=== PATIENT | female | born 1990 | race Hispanic/Latino ===

== ENCOUNTER 2020-01-03 03:56 | Emergency (ER) | payer OTHER ==
[~2020-01-03] VITALS: Ht 157.5 cm; Wt 104.3 kg
[2020-01-03] MEDS ORDERED: CYCLOBENZAPRINE5 MG PO (04:20)
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
--- OUTSIDE RECORDS SUMMARY | 2020-01-03 04:38 | XMS REPORT | Continuity of Care Document ---
Author Author [facility] Organization [facility] Address 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 Allergies, Adverse Reactions, Alerts Allergy Name Allergy Type Status Severity Reaction(s) Onset Date Inacti ve Date Treating Clinician Comments Source No Known Allergies DA Active U 2019-12-20 00:00:00 [facility] No Known Allergies DA Active U 2019-10-27 00:00:00 [facility] No Known Allergies DA Active U 2019-10-26 00:00:00 [facility] No Known Allergies DA Active U 2017-11-16 00:00:00 [facility] chocolate flavor DA Active [place] 2017-08-07 00:00:00 [facility] Medications This patient has no known medications. Procedures This patient has no known procedures. Results Test Description Test Time Test Comments Results Result Comments Source - DUP VEIN UNI/LTD 2020-01-03 03:43:00 [facility] : 1990 Sex: F Name: MELECIO OSWALD [facility] Edwards : 1990 Age/S: 29 / F [address] [place] [address] Unit #: [id number] Loc: [place] [address] Phys: Eli Chahal Acct: [id number] Dis Date: Status: DEP ER PHONE #: [phone] Exam Date: 01/03/2020 0332 FAX #: [phone] Reason: RUE TINGLING-RECENTLY DX WITH PE-TAKING XARELTO EXAMS: CPT CODE: [id number] DUP VEIN UNI/LTD 90155 Patient Name: MELECIO OSWALD : 1990; Age: 29 years y/o Female MR: [id number] Study: - DUP VEIN UNI/LTD 01/03/2020 1:56 AM Ordering Physician: Eli Chahal Clinical Indication: Right upper extremity tingling DX WITH PE-TAKING XARELTO Comparison: None FINDINGS: Compression duplex ultrasound of the right upper extremity was performed from the subclavicular region through the antecubital fossa. The ipsilateral right internal jugular vein was also evaluated. The visualized right upper extremity veins are patent and compressible without evidence of intraluminal thrombus. Satisfactory spontaneous and augmented flow is demonstrated in the visualized segments. IMPRESSION: Negative right upper extremity venous Doppler without evidence of deep vein thrombosis. A preliminary report was provided by Dr. Mcmillan. SL: TPAINTER-H at 0343 Reported and signed by: Cuate Padilla M.D. CC: Boyd Hopkins M.D.; Eli Chahal Technologist: Kya Macias RDMS(AB)(OB) Trnscb Date/Time: 01/03/2020 (0343) [email or web address] Orig Print D/T: S: 01/03/2020 (0346) Probe: PAGE 1 Signed Report - XR SHOULDER 2 + V RT 2019-12-22 09:50:00 FAX: Sharifa Melgar NP [phone] [place]: St: [facility] FAX: Balwinder Casper I [phone] FAX: Boyd Salamanca MD [phone] Name: OSWALDMELECIOEdgard QUIÑONEZ [facility] : 1990 Age/S: 29/F [address] [place] [address] Unit #: [id number] Loc: [address] [address] Phys: Sharifa Melgar NP Acct: [id number] Dis Date: Status: ADM IN PHONE #: [phone] Exam Date: 12/22/2019942 FAX #: [phone] Reason: RT SHOULDER PAIN EXAMS: CPT CODE: [id number] XR SHOULDER 2 + [place] [address] RIGHT SHOULDER 3 VIEWS 12/22/2019 COMPARISON: December 18, 2019 CLINICAL HISTORY: RT SHOULDER PAIN FINDINGS: No acute fracture or dislocation is noted. No lytic or blastic lesion is seen. No significant joint space narrowing noted. IMPRESSION: No acute osseous abnormality. at 0950 Reported and signed by: Shad Jane M.D. CC: Sharifa Melgar NP; Balwinder Artis MD; Boyd Hopkins M.D. Technologist: Juliana Hodge, RT(R); eTrese Palacios RT(R) Trnlard Date/Time/By: 12/22/2019 (2931) : By: [email or web address] Orig Print D/T: S: 12/22/2019 (2353) PAGE 1 Signed Report - DUP VEIN PATRICK 2019-12-21 10:54:00 Name: MELECIO YORK [facility] : 1990 Age/S: 29 / F [address] [place] [address] Unit #: [id number] Loc: [place] [address] Phys: Sharifa Melgar NP Acct: [id number] Dis Date: Status: ADM IN PHONE #: [phone] Exam Date: 12/21/2019 1048 FAX #: [phone] Reason: R/O DVT EXAMS: CPT CODE: [id number] DUP VEIN PATRICK [address] EXAM: US BILATERAL LOWER EXTREMITY VENOUS DOPPLER : 1990; Age: 29 years y/o Female INDICATION: Shortness of breath, chest pain, R/O DVT COMPARISON: None. TECHNIQUE: Multiplanar grayscale, color Doppler and spectral Doppler ultrasound of the bilateral lower extremity veins. FINDINGS: Right lower extremity: The common femoral vein, femoral vein, popliteal vein and visualized posterior tibial/calf veins are patent. There is no echogenic debris to suggest deep venous thrombosis. Left lower extremity: The common femoral vein, superficial femoral vein, popliteal vein and visualized posterior tibial/calf veins are patent. There is no echogenic debris to suggest deep venous thrombosis. IMPRESSION: No Deep Venous Thrombosis of the lower extremities. SL: [id number] at 1054 Reported and signed by: Jorge Gaines D.O. CC: Sharifa Melgar NP; Balwinder Artis MD; Boyd Hopkins M.D. Technologist: Pamela Joe RDMS(Edgard)(BR) Trnscb Date/Time: 12/21/2019 (105) [email or web address] Orig Print D/T: S: 12/21/2019 (1058) Probe: PAGE 1 Signed Report T4 FREE 2019-12-20 20:14:00 Test Item T4 FREE (test code = T4F) 1.1 ng/dL 0.77-1.61 N COMMENTS: REPEATTHYROID STIMULATING [id number] 20:14:00* Test Item Value Reference Range Interpretation Comments THYROID STIMULATING HORMONE (test code = TSH) 4.36 0.42-5.4 7 N Results in jonathan- International Units/mL COMMENTS: [id number] 09:34:00* Test Item Value Reference Range Interpretation Comments TROPONIN-I (test code = TROPI) < 0.006 ng/mL 0.000-0.045 N Negative: <= 0.045 Positive: >= 0.046 Correlation with serial results, other cardiac markers andclinical findings is necessary to determine the clinicalsignificance of this result. Results using different methodologies should not be comparedto one another as quantitative results may vary by method. PROTHROMBIN [id number] 08:31:00* Test Item Value Reference Range Interpretation Comments PROTHROMBIN TIME PATIENT (test code = PTP) 11.3 SECONDS 9.3-12.9 N INTERNATIONAL NORMAL RATIO (test code = INR) 1.0 0.8-1.2 N TARGET INR BY INDICATION Indication INR1. Prophylaxis of venous thrombosis 2.0 - 3.0 (orthopedic surgery), Prophylaxis of venous thrombosis (other than high-risk surgery), Treatment of Deep Vein Thrombosis/Pulmonary Embolism, Prevention of systemic embolism - Tissue heart valves, Acute Myocardial Infarction (to prevent systemic embolism), Valvular heart disease, Atrial Fibrillation, Bileaflet mechanical valve in aortic position.2. Mechanical prosthetic valves (high risk), 2.5 - 3.5 Presence of Lupus Anticoagulant or Antiphospholipid Antibodies, Prevention of systemic embolism - Acute Myocardial Infarction (to prevent recurrent infarct). THROMBOPLASTIN TIME [id number] 08:31:00* Test Item Value Reference Range Interpretation Comments THROMBOPLASTIN TIME PARTIAL (test code = PTT) 34.3 Seconds 25.0-39. 5 N Therapeutic Range: 50.4 - 88.3 Seconds Effective 06/30/2018 [id number] 07:29:00* Test Item Value Reference Range Interpretation Comments TROPONIN-I (test code = TROPI) < 0.006 ng/mL 0.000-0.045 N Negative: <= 0.045 Positive: >= 0.046 Correlation with serial results, other cardiac markers andclinical findings is necessary to determine the clinicalsignificance of this result. Results using different methodologies should not be comparedto one another as quantitative results may vary by method. UR HCG [id number] 06:56:00* Test Item Value Reference Range Interpretation Comments UR HCG QUAL (test code = HCGQLU) NEGATIVE NEGATIVE B-TYPE NATRIURETIC [id number] 05:46:00* Test Item Value Reference Range Interpretation Comments B-TYPE NATRIURETIC PEPTIDE (test code = BNP) 4.0 PG/ML 0-100 N BASIC METABOLIC [id number] 05:41:00* Test Item Value Reference Range Interpretation Comments SODIUM (test code = NA) 135 mEq/L 134-147 N POTASSIUM (test code = K) 4.7 mEq/L 3.4-5.0 N CHLORIDE (test code = CL) 107 mEq/L 100-108 N CARBON DIOXIDE (test code = CO2) 26 mEq/L 21-33 N ANION GAP (test code = GAP) 7 0-20 N GLUCOSE (test code = GLU) 90 mg/dL 70-110 N BLOOD UREA NITROGEN (test code = BUN) 10 mg/dL 7-18 N GLOMERULAR FILTRATION RATE (test code = GFR) 98.9 110-120 L Units of measure = ml/min/1.73 m2 CREATININE (test code = CREAT) 0.7 mg/dL 0.6-1.3 N CALCIUM (test code = CA) 8.5 mg/dL 8.0-10.5 N [id number] 05:41:00* Test Item Value Reference Range Interpretation Comments TROPONIN-I (test code = TROPI) < 0.006 ng/mL 0.000-0.045 N Negative: <= 0.045 Positive: >= 0.046 Correlation with serial results, other cardiac markers andclinical findings is necessary to determine the clinicalsignificance of this result. Results using different methodologies should not be comparedto one another as quantitative results may vary by method. CBC W/AUTO [id number] 05:22:00* Test Item Value Reference Range Interpretation Comments WHITE BLOOD CELL (test code = WBC) 10.22 x10 3/uL 4.5-11.0 N RED BLOOD CELL (test code = RBC) 4.23 x10 6/uL 3.54-5.02 N HEMOGLOBIN (test code = HGB) 10.9 g/dL 11.0-15.0 L HEMATOCRIT (test code = HCT) 35.8 % 33.0-45.0 N MEAN CELL VOLUME (test code = MCV) 84.6 fL 81.0-99.0 N MEAN CELL HGB (test code = MCH) 25.8 pg 27.0-33.0 L MEAN CELL HGB CONCETRATION (test code = MCHC) 30.4 g/dL 33.0-37. 0 L RED CELL DISTRIBUTION WIDTH CV (test code = RDW) 14.8 % 11.5- 14.5 H RED CELL DISTRIBUTION WIDTH SD (test code = RDW-SD) 45.6 fL 37 .0-54.0 N PLATELET COUNT (test code = PLT) 301 x10 3/uL 150-400 N MEAN PLATELET VOLUME (test code = MPV) 11.0 fL 7.0-9.0 H NEUTROPHIL % (test code = NT%) 52.8 % 56.0-77.0 L IMMATURE GRANULOCYTE % (test code = IG%) 0.3 % 0.0-2.0 N LYMPHOCYTE % (test code = LY%) 37.1 % 14.0-32.0 H MONOCYTE % (test code = MO%) 5.8 % 4.8-9.0 N EOSINOPHIL % (test code = EO%) 3.6 % 0.3-3.7 N BASOPHIL % (test code = BA%) 0.4 % 0.0-2.0 N NUCLEATED RBC % (test code = NRBC%) 0.0 % 0-0 N NEUTROPHIL # (test code = NT#) 5.40 x10 3/uL 2.0-7.6 N IMMATURE GRANULOCYTE # (test code = IG#) 0.03 x10 3/uL 0.00-0.03 N LYMPHOCYTE # (test code = LY#) 3.79 x10 3/uL 1.0-3.8 N MONOCYTE # (test code = MO#) 0.59 x10 3/uL 0.1-0.8 N EOSINOPHIL # (test code = EO#) 0.37 x10 3/uL 0.0-0.2 H BASOPHIL # (test code = BA#) 0.04 x10 3/uL 0.0-0.2 N NUCLEATED RBC # (test code = NRBC#) 0.00 x10 3/uL 0.0-0.1 N MANUAL DIFF REQUIRED (test code = MDIFF) NO - XR CHEST 1 [id number] 05:04:00 FAX: Boyd Salamanca MD [phone] [place]: St: REG FAX: Ashvin Stubbs MD Name: MELECIO OSWALD [facility] : 1990 Age/S: 29/F [address] [place] [address] Unit #: [id number] Loc: [place] [address] Phys: Ashvin Stubbs MD Acct: [id number] Dis Date: Status: REG ER PHONE #: [phone] Exam Date: 12/20/2019 0455 FAX #: [phone] Reason: R chest pain EXAMS: CPT CODE: [id number] XR CHEST 1 V 82745 Study: - XR CHEST 1 V 12/20/2019 4:40 AM Patient Name: MELECIO OSWALD MR: [id number] : 1990; Age: 29 years y/o Female Ordering Physician: Ashvin Stubbs MD Clinical Indication: Right chest pain. Comparison: 12/20/2019 at 0131 hours FINDINGS LUNGS: Slightly decreasing pulmonary inflation associated with hazy right upper lobe opacity likely summation artifact related to vessels and overlapping osseous structures. No definite pleural effusion or pneumothorax. Slightly elevated right hemidiaphragm HEART AND MEDIASTINUM: Normal size heart. LINES: None. OSSEOUS STRUCTURES: No fracture, dislocation, or suspicious focal osseous lesion. OTHER: None. IMPRESSION: Slightly decreasing pulmonary inflation associated with hazy right upper lobe opacity likely summation artifact related to vessels and overlapping osseous structures. An apical lordotic image with better inflation with be confirmatory if clinically indicated. SL: TPAINTER-H at 0504 Reported and signed by: Cuate Padilla M.D. PAGE 1 Signed Report (CONTINUED) FAX: Boyd Salamanca MD [phone] [place]: St: REG FAX: Ashvin Stubbs MD Name: MELECIO OSWALD [facility] : 1990 Age/S: 29/F [address] [facility] [address] Unit #: [id number] Loc: [place] [address] Phys: Ashvin Stubbs MD Acct: [id number] Dis Date: Status: REG ER PHONE #: [phone] Exam Date: 12/20/2019 0455 FAX #: [phone] Reason: R chest pain EXAMS: C PT CODE: [id number] XR CHEST 1 V 75054 <Continued> CC: Boyd Hopkins M.D.; Ashvin Stubbs MD Technologist: Yi Small, RT(R) Trnscrd Date/Time/By: 12/20/2019 (0504) : By: [email or web address] Orig Print D/T: S: 12/20/2019 (050) PAGE 2 Signed Report BASIC METABOLIC [id number] 02:24:00* Test Item Value Reference Range Interpretation Comments SODIUM (test code = NA) 141 mmol/L 135-148 N POTASSIUM (test code = K) 3.7 mmol/L 3.5-5.1 N CHLORIDE (test code = CL) 102 mmol/L 101-109 N CARBON DIOXIDE (test code = CO2) 28.2 mmol/L 21-32 N ANION GAP (test code = GAP) 15 mmol/L 10-20 N GLUCOSE (test code = GLU) 113 mg/dL 74-106 H BLOOD UREA NITROGEN (test code = BUN) 9 mg/dL 3-21 N GLOMERULAR FILTRATION RATE (test code = GFR) > 60 mL/min >=60 Estimated GFR by using Modified MDRD formula.Chronic kidney disease is defined as either kidney damageor GFR <60 mL/min/1.73 m2 for >3 months. CREATININE (test code = CREAT) 0.59 mg/dL 0.55-1.3 N BUN/CREATININE RATIO (test code = BUN/CREA) 15.3 10-20 N CALCIUM (test code = CA) 8.8 mg/dL 8.4-10.2 N HEPATIC FUNCTION [id number] 02:24:00* Test Item Value Reference Range Interpretation Comments TOTAL PROTEIN (test code = PROT) 7.4 g/dL 6.5-8.4 N ALBUMIN (test code = ALB) 3.3 g/dL 3.4-4.8 L GLOBULIN (test code = GLOB) 4.1 G/DL 1-10 N ALBUMIN/GLOBULIN RATIO (test code = A/G) 0.8 RATIO 0.75-1.50 N BILIRUBIN TOTAL (test code = BILT) 0.40 mg/dL 0.0-1.0 N BILIRUBIN DIRECT (test code = BILD) 0.10 mg/dL 0.0-0.30 N SGOT/AST (test code = AST) 37 U/L 6-32 H SGPT/ALT (test code = ALT) 80 U/L 12-78 H N ote: Change in REFERENCE RANGE due to new reagent method. ALKALINE PHOSPHATASE TOTAL (test code = ALKP) 99 U/L 38-126 N HCG SERUM [id number] 02:24:00* Test Item Value Reference Range Interpretation Comments HCG SERUM QUAL (test code = HCGQL) NEGATIVE NEGATIVE This HCGQL test is NOT applicable for MALE patients.Check with nurse about probable order error.If Tumor Marker Test needed, nurse should order test "HCGTU"(Test #550.82822) [id number] 02:24:00* Test Item Value Reference Range Interpretation Comments TROPONIN-I (test code = TROPI) <0.015 ng/mL 0.00-0.056 N PROTHROMBIN [id number] 02:10:00* Test Item Value Reference Range Interpretation Comments PROTHROMBIN TIME PATIENT (test code = PTP) 9.6 seconds 9.0-13.0 N INTERNATIONAL NORMAL RATIO (test code = INR) 1.0 0.8-1.2 N The therapeutic range for oral anticoagulant therapy formost indications is an international normalized ratio (INR)of between 2.0 and 3.0. The recommended therapeutic INRrange for various clinical situations is listed below: Clinical Situation INR range Pulmonary e mbolism treatment (2.0-3.0)Venous thrombosis treatmentVenous thrombosis prophylaxis (high risk surgery)Prevention of systemic embolism from: Acute myocardial infarction Valvular heart disease Atrial fibrillation Mechanical prosthetic heart valves (2.5-3.5) IS PATIENT ON ANTICOAGULANTS? NTHROMBOPLASTIN TIME [id number] 02:10:00* Test Item Value Reference Range Interpretation Comments THROMBOPLASTIN TIME PARTIAL (test code = PTT) 23.7 seconds 25.5-34. 3 L Therapeutic Range for patients on Heparin Therapy is 2 to2.5 times their baseline PTT level. IS PATIENT ON ANTICOAGULANTS? [id number] 02:10:00* Test Item Value Reference Range Interpretation Comments D-DIMER (test code = DDIMER) 791 ng/ml < 600 HH Results called to [id number] by [email or web address] 12/20/19 0210Critical results verified and read back by Nurse? Y IS PATIENT ON ANTICOAGULANTS? NBASIC METABOLIC [id number] 02:05:00* Test Item Value Reference Range Interpretation Comments SODIUM (test code = NA) 141 mmol/L 135-148 N POTASSIUM (test code = K) 3.7 mmol/L 3.5-5.1 N CHLORIDE (test code = CL) 102 mmol/L 101-109 N CARBON DIOXIDE (test code = CO2) 28.2 mmol/L 21-32 N ANION GAP (test code = GAP) 15 mmol/L 10-20 N GLUCOSE (test code = GLU) 113 mg/dL 74-106 H BLOOD UREA NITROGEN (test code = BUN) 9 mg/dL 3-21 N GLOMERULAR FILTRATION RATE (test code = GFR) > 60 mL/min >=60 Estimated GFR by using Modified MDRD formula.Chronic kidney disease is defined as either kidney damageor GFR <60 mL/min/1.73 m2 for >3 months. CREATININE (test code = CREAT) 0.59 mg/dL 0.55-1.3 N BUN/CREATININE RATIO (test code = BUN/CREA) 15.3 10-20 N CALCIUM (test code = CA) 8.8 mg/dL 8.4-10.2 N HEPATIC FUNCTION [id number] 02:05:00* Test Item Value Reference Range Interpretation Comments TOTAL PROTEIN (test code = PROT) gram/dL 6.4-8.2 ALBUMIN (test code = ALB) g/dL 3.4-5.0 GLOBULIN (test code = GLOB) g/dL 2.7-4.2 ALBUMIN/GLOBULIN RATIO (test code = A/G) 0.75-1.50 BILIRUBIN TOTAL (test code = BILT) mg/dL 0.2-1.2 BILIRUBIN DIRECT (test code = BILD) mg/dL 0.0-0.20 SGOT/AST (test code = AST) IUnit/L 15-37 SGPT/ALT (test code = ALT) U/L 10-69 ALKALINE PHOSPHATASE TOTAL (test code = ALKP) IUnit/L 45-117 HCG SERUM [id number] 02:05:00* Test Item Value Reference Range Interpretation Comments HCG SERUM QUAL (test code = HCGQL) NEGATIVE NEGATIVE This HCGQL test is NOT applicable for MALE patients.Check with nurse about probable order error.If Tumor Marker Test needed, nurse should order test "HCGTU"(Test #550.24376) [id number] 02:05:00* Test Item Value Reference Range Interpretation Comments TROPONIN-I (test code = TROPI) ng/mL 0-0.045 PROTHROMBIN [id number] 02:03:00* Test Item Value Reference Range Interpretation Comments PROTHROMBIN TIME PATIENT (test code = PTP) 9.6 seconds 9.0-13.0 N INTERNATIONAL NORMAL RATIO (test code = INR) 1.0 0.8-1.2 N The therapeutic range for oral anticoagulant therapy formost indications is an international normalized ratio (INR)of between 2.0 and 3.0. The recommended therapeutic INRrange for various clinical situations is listed below: Clinical Situation INR range Pulmonary e mbolism treatment (2.0-3.0)Venous thrombosis treatmentVenous thrombosis prophylaxis (high risk surgery)Prevention of systemic embolism from: Acute myocardial infarction Valvular heart disease Atrial fibrillation Mechanical prosthetic heart valves (2.5-3.5) IS PATIENT ON ANTICOAGULANTS? NTHROMBOPLASTIN TIME [id number] 02:03:00* Test Item Value Reference Range Interpretation Comments THROMBOPLASTIN TIME PARTIAL (test code = PTT) 23.7 seconds 25.5-34. 3 L Therapeutic Range for patients on Heparin Therapy is 2 to2.5 times their baseline PTT level. IS PATIENT ON ANTICOAGULANTS? [id number] 02:03:00* Test Item Value Reference Range Interpretation Comments D-DIMER (test code = DDIMER) ng/ml < 600 IS PATIENT ON ANTICOAGULANTS? NBASIC METABOLIC [id number] 02:03:00* Test Item Value Reference Range Interpretation Comments SODIUM (test code = NA) 141 mmol/L 135-148 N POTASSIUM (test code = K) 3.7 mmol/L 3.5-5.1 N CHLORIDE (test code = CL) 102 mmol/L 101-109 N CARBON DIOXIDE (test code = CO2) 28.2 mmol/L 21-32 N ANION GAP (test code = GAP) 15 mmol/L 10-20 N GLUCOSE (test code = GLU) 113 mg/dL 74-106 H BLOOD UREA NITROGEN (test code = BUN) 9 mg/dL 3-21 N GLOMERULAR FILTRATION RATE (test code = GFR) > 60 mL/min >=60 Estimated GFR by using Modified MDRD formula.Chronic kidney disease is defined as either kidney damageor GFR <60 mL/min/1.73 m2 for >3 months. CREATININE (test code = CREAT) 0.59 mg/dL 0.55-1.3 N BUN/CREATININE RATIO (test code = BUN/CREA) 15.3 10-20 N CALCIUM (test code = CA) 8.8 mg/dL 8.4-10.2 N HEPATIC FUNCTION [id number] 02:03:00* Test Item Value Reference Range Interpretation Comments TOTAL PROTEIN (test code = PROT) gram/dL 6.4-8.2 ALBUMIN (test code = ALB) g/dL 3.4-5.0 GLOBULIN (test code = GLOB) g/dL 2.7-4.2 ALBUMIN/GLOBULIN RATIO (test code = A/G) 0.75-1.50 BILIRUBIN TOTAL (test code = BILT) mg/dL 0.2-1.2 BILIRUBIN DIRECT (test code = BILD) mg/dL 0.0-0.20 SGOT/AST (test code = AST) IUnit/L 15-37 SGPT/ALT (test code = ALT) U/L 10-69 ALKALINE PHOSPHATASE TOTAL (test code = ALKP) IUnit/L 45-117 HCG SERUM [id number] 02:03:00* Test Item Value Reference Range Interpretation Comments HCG SERUM QUAL (test code = HCGQL) NEGATIVE [id number] 02:03:00* Test Item Value Reference Range Interpretation Comments TROPONIN-I (test code = TROPI) ng/mL 0-0.045 CBC W/O [id number] 01:49:00* Test Item Value Reference Range Interpretation Comments WHITE BLOOD CELL (test code = WBC) 8.7 K/mm3 4.5-12.5 N RED BLOOD CELL (test code = RBC) 4.32 mill/mm3 3.7-5.2 N HEMOGLOBIN (test code = HGB) 11.2 gram/dL 11.5-15.5 L HEMATOCRIT (test code = HCT) 35.6 % 36.0-46.0 L MEAN CELL VOLUME (test code = MCV) 82.4 fL 80-98 N MEAN CELL HGB (test code = MCH) 25.9 picogram 27.0-33.0 L MEAN CELL HGB CONCETRATION (test code = MCHC) 31.5 gram/dL 33.0-36. 0 L RED CELL DISTRIBUTION WIDTH (test code = RDW) 14.7 % 11.6-16. 2 N RED CELL DISTRIBUTION WIDTH SD (test code = RDW-SD) 44.2 fL 37 .0-51.0 N PLATELET COUNT (test code = PLT) 255 K/mm3 150-450 N MEAN PLATELET VOLUME (test code = MPV) 10.8 fL 6.7-11.0 N - XR CHEST 1 [id number] 01:43:00 Name: MELECIO OSWALD [facility] : 1990 Age/S:29 /F [address] [facility] Unit#:[id number] Loc: [place] [address] Phys: Dianna Villeda MD Dis Date: PHONE #: [phone] Status: PRE ER FAX #: [phone] Exam Date: 12/20/2019 Reason: CHEST PAIN EXAMS: CPT CODE: [id number] XR CHEST 1 V 49616 AFTER HOURS SERVICE ON: 12/20/2019 1:43 AM AP Portable Chest Location Code M12 HISTORY: CHEST PAIN FINDINGS: There are no infiltrates. There are no pleural effusions. There is no pneumothorax. Cardiac silhouette and mediastinum appear within normal limits. IMPRESSION: No active pulmonary findings. at 0143 Reported and signed by: Holly Pemberton M.D. CC: Boyd Hopkins MD Technologist: MARIAM PETERSON CT Trnscrpt Data: 12/20/2019 (0143) t.[email or web address] Orig Print D/T: S: 12/20/2019 (0146) PAGE 1 Signed Report - CTA CHEST FOR [id number] 04:42:00 Name: MELECIO OSWALD [facility] : 1990 Age/S: 29 / F [address] [place] [address] Blvd Unit #: [id number] Loc: [place] [address] Phys: Parag Herrera MD Acct: [id number] Di s Date: Status: REG ER PHONE #: Exam Date: 12/18/2019427 FAX #: [phone] Reason: CHEST PAIN EXAMS: CPT CODE: [id number] [place] [address] STUDY: - CTA CHEST FOR PE 12/18/2019 2:49 AM Ordering Physician: Parag Herrera MD Patient Name: MELECIO OSWALD MR: [id number] : 1990; Age: 29 years y/o Female Clinical Indication: Chest pain. Right chetan ulder pain. Comparison: 09/08/2018 TECHNIQUE: Sequential trans-axial images were obtained with a multi-detector helical CT after iodinated contrast administration. Coronal, sagittal, and 3-D MIP reconstructions were performed. CT imaging performed at this [facility] ation utilizes radiation dose optimization techniques which include one or more of the following: -Automated exposure control -Adjustm ent of the mA and/or kV according to patient size -Use of iterative recons truction technique IV CONTRAST: [id number] Radiati on Dose DLP: 415.47 mGy-cm FINDINGS: The e xamination is mildly limited by scatter artifact related to patient body h abitus. VASCULAR EVALUATION THORACIC AORTA: Normal c aliber without aneurysm or dissection. PULMONARY ARTERIES: No evid ence of a central pulmonary embolus is appreciated. However, several smal l indeterminate filling defects are seen on multiple contiguous images wit hin segmental branches in both lung bases best demonstrated on series 2 im age 53 and 54 the right lower lobe and a series 2 images 61-68 in the left lower lobe. NONVASCULAR EVALUATION LUNGS: W ell inflated lungs associated with a mildly elevated right PAGE 1 Signed Report (CONTINUED) Name: MELECIO [facility]ALD [facility] [place] : 1990 Age/S: 29 / F [address] [facility] Unit #: [id number] Loc: [place] [address] Phys: Parag Herrera MD Acct: [id number] Dis Date: Status: REG ER PHONE #: [phone] Exam D ate: 12/18/2019427 FAX #: [phone] Reason: CHEST PAIN EXAMS: CPT CODE: [id number] [place] [address] <Continued> hemidiaphragm and minimal bilateral basilar subsegmental atelectasis. No consolidation, pleural effusion, or pneumothorax. AIRWAY: Clear central tracheobronchial tree. HEART: Heart size at the upper limits of normal. MEDIASTINUM AND KARRIE: No hilar or mediastinal lymphadenopathy. Heterogeneous enlarged thyroid. VISUALIZED UPPER ABDOMEN: Incompletely visualized hepatic steatosis. SOFT TISSUES: No suspicious soft tissue lesion or abnormality. OSSEOUS STRUCTURES: No fracture, dislocation, or suspicious focal osseous lesion. IMPRESSION: Mildly limited examination secondary to artifact from patient body habitus. No evidence of central pulmonary embolus is appreciated. However, subtle indeterminate filling defects are seen within segmental branches in both lung bases worrisome for tiny peripheral emboli. Hepatic steatosis. Mildly enlarged and heterogeneous thyroid. Critical findings were communicated to Parag Herrera MD on 12/18/2019 4:40 AM. SL: TPAINTER-H at 0442 Reported and signed by: Cuate Padilla M.D. PAGE 2 Signed Report (CONTINUED) Name: MELECIO OSWALD [facility] [place] : 1990 Age/S: 29 / F [address] [facility] Unit #: [id number] Loc: [place] [address] Phys: Parag Herrera MD Acct: [id number] Dis Date: Status: REG ER PHONE #: [phone] Exam Date: 12/18/2019427 FAX #: [phone] Reason: CHEST PAIN EXAMS: CPT CODE: [id number] [place] [address] <Continued> CC: Boyd Hopkins M.D.; Parag Herrera MD Technologist:Mariam Todd, RT(R)(CT) CTDI: DLP: Trnscb Date/Time: 12/18/2019 (441) [email or web address] Orig Print D/T: S: 12/18/2019 (0443) PAGE 3 Signed Report DRUGS OF ABUSE SCREEN [id number] 04:01:00* Test Item Value Reference Range Interpretation Comments URN COCAINE (test code = COCAURN) NEGATIVE NEGATIVE URN CANNABINOIDS (test code = CANNABURN) POSITIVE NEGATIVE A URN AMPHETAMINE (test code = AMPHETURN) NEGATIVE NEGATIVE URN BARBITURATE (test code = BARBITURN) NEGATIVE NEGATIVE URN BENZODIAZEPINE (test code = BENZOURN) NEGATIVE NEGATIVE Cut-off value:200 ng/mL URN OPIATES (test code = OPIATURN) NEGATIVE NEGATIVE Cut-off value:2000 ng/mL URN PHENCYCLIDINE (PCP) (test code = PHENCURN) NEGATIVE NEGATIV E Cutoffs:Barbiturates 200 ng/mLBenzodiazepines 200 ng/mLTHC Cannabinoids 50 ng/mLOpiates(Morphine) 2000 ng/mLAmphetamine 1000 ng/mLCocaine 300 ng/mLPCP phencyclidine 25 ng/mL Unconfirmed screening results shouldnot be used for non-medical purposes. UR HCG [id number] 03:44:00* Test Item Value Reference Range Interpretation Comments UR HCG QUAL (test code = HCGQLU) NEGATIVE NEGATIVE - XR SHOULDER 2 + V [id number] 02:43:00 FAX: Boyd Salamanca MD [phone] [place]: St: [facility] FAX: Parag Mares MD [phone] Name: OSWALDMELECIO WORTHINGTON OLAMIDE [facility] [place] : 1990 Age/S: 29/F [address] [place] [address] Unit #: [id number] Loc: [place] [address] Phys: Parag Herrera MD Acct: [id number] Dis Date: Status: REG ER PHONE #: [phone] Exam Date: 12/18/2019 023 FAX #: [phone] Reason: ATRAUMATIC PAIN EXAMS: CPT CODE: [id number] XR SHOULDER 2 + V RT [id number] Study: - XR SHOULDER 2 + V RT 12/18/2019 1:53 AM P atient Name: MELECIO OSWALD MR: [id number] : 1990; Age: 29 years y/o Female Ordering Physician: Parag Herrera MD Clinical Indication: Nontraumatic right shoulder pain. Compariso n: None RIGHT SHOULDER, 2 views: IMPRESSION: No acute fracture, dislocation, or suspicious focal osseous lesion. Mildly prominent soft tissues likely related to body habitus. SL: TPAINTER-H Elect ronically Signed by Faustino Padilla on 12/18/19 20 at 0243 Reported and signed by: Cuate yoon M.D. CC: Boyd Hopkins M.D.; Parag Herrera MD Technologist: Socorro Jimenez, RT(R); Trudi Guzman RT(R) Tr [facility] Date/Time/By: 12/18/2019 (0243) : By: [email or web address] Orig Print D/T: S: 12/18/2019 (0246) PAGE 1 Pooja d Report - XR CHEST 1 [id number] 02:42:00 FAX: Boyd Salamanca MD [phone] [place]: St: REG FAX: Parag Mares MD [phone] Name: MELECIO OWSALD [facility] [place] : 1990 Age/S: 29/F [address] [place], [place] [address] Unit #: [id number] Loc: [place] [address] Phys: Parag Herrera MD Acct: [id number] Dis Date: Status: REG ER PHONE #: [phone] Exam Date: 12/18/2019 0231 FAX #: [phone] Reason: Chest Pain EXAMS: CPT CODE: [id number] XR CHEST 1 V 35756 Study: - XR CHEST 1 V 12/18/2019 1:52 AM Patient Name: MELECIO OSWALD MR: [id number] : 1990; Age: 29 years y/o Female Ordering Physician: Parag Herrera MD Clinical Indication: Chest Pain Comparison: None FINDINGS LUNGS: The hypoinflated lungs are clear of consolidation, pleural effusion, and pneumothorax. HEART AND MEDIASTINUM: Normal size heart accentuated by mild hypoinflation. LINES: None. OSSEOUS STRUCTURES: No fracture, dislocation, or suspicious focal osseous lesion. OTHER: None. IMPRESSION: Mildly hypoinflated, but clear lungs. SL: TPAINTER-H Electron ically Signed by Faustino Padilla on 12/18/2019 at 0242 Reported and signed by: Cuate lama M.D. PAGE 1 Signed Report (CONTINUED) FAX: Boyd Salamanca MD [phone] [place]: St: REG FAX: Parag Mares MD [phone] Name: MELECIO OSWALD [facility] [place] : 1990 Age/S: 29/F [address] [place], [place] [address] Unit #: [id number] Loc: [place] [address] Phys: Parag Herrera MD Acct: [id number] Dis Date: Status: REG ER PHONE #: [phone] Exam Date: 12/18/2019 0231 FAX #: [phone] Reason: Chest Pain EXAMS: CPT CODE: [id number] XR CHEST 1 V 06204 <Continued> CC: Boyd Hopkins M.D.; Parag Herrera MD Technologist: Socorro Jimenez, RT(R); Trudi Guzman, RT(R) Trnscrd Date/Time/By: 12/18/2019 (0242) : By: [email or web address] Orig Print D/T: S: 12/18/2019 (0245) PAGE 2 Signed Report BASIC METABOLIC [id number] 02:23:00* Test Item Value Reference Range Interpretation Comments SODIUM (test code = NA) 138 mEq/L 134-147 N POTASSIUM (test code = K) 3.7 mEq/L 3.4-5.0 N CHLORIDE (test code = CL) 105 mEq/L 100-108 N CARBON DIOXIDE (test code = CO2) 25 mEq/L 21-33 N ANION GAP (test code = GAP) 12 0-20 N GLUCOSE (test code = GLU) 117 mg/dL 70-110 H BLOOD UREA NITROGEN (test code = BUN) 14 mg/dL 7-18 N GLOMERULAR FILTRATION RATE (test code = GFR) 98.9 110-120 L Units of measure = ml/min/1.73 m2 CREATININE (test code = CREAT) 0.7 mg/dL 0.6-1.3 N CALCIUM (test code = CA) 9.0 mg/dL 8.0-10.5 N HEPATIC FUNCTION [id number] 02:23:00* Test Item Value Reference Range Interpretation Comments TOTAL PROTEIN (test code = PROT) 7.6 g/dL 6.4-8.2 N ALBUMIN (test code = ALB) 3.90 g/dL 3.4-5.0 N BILIRUBIN TOTAL (test code = BILT) 0.50 mg/dL 0.0-1.0 N BILIRUBIN DIRECT (test code = BILD) 0.10 MG/DL 0.0-0.30 N BILIRUBIN INDIRECT (test code = BILIND) 0.40 MG/DL SGOT/AST (test code = AST) 47 IUnit/L 15-37 H SGPT/ALT (test code = ALT) 74 IUnit/L 30-65 H ALKALINE PHOSPHATASE TOTAL (test code = ALKP) 115 IUnit/L 20-125 N [id number] 02:23:00* Test Item Value Reference Range Interpretation Comments LIPASE (test code = LIP) 33 U/L 13-57 N [id number] 02:23:00* Test Item Value Reference Range Interpretation Comments MAGNESIUM (test code = MAG) 1.94 mg/dL 1.8-2.4 N PROTHROMBIN [id number] 02:17:00* Test Item Value Reference Range Interpretation Comments PROTHROMBIN TIME PATIENT (test code = PTP) 10.7 SECONDS 9.3-12.9 N INTERNATIONAL NORMAL RATIO (test code = INR) 1.0 0.8-1.2 N TARGET INR BY INDICATION Indication INR1. Prophylaxis of venous thrombosis 2.0 - 3.0 (orthopedic surgery), Prophylaxis of venous thrombosis (other than high-risk surgery), Treatment of Deep Vein Thrombosis/Pulmonary Embolism, Prevention of systemic embolism - Tissue heart valves, Acute Myocardial Infarction (to prevent systemic embolism), Valvular heart disease, Atrial Fibrillation, Bileaflet mechanical valve in aortic position.2. Mechanical prosthetic valves (high risk), 2.5 - 3.5 Presence of Lupus Anticoagulant or Antiphospholipid Antibodies, Prevention of systemic embolism - Acute Myocardial Infarction (to prevent recurrent infarct). THROMBOPLASTIN TIME [id number] 02:17:00* Test Item Value Reference Range Interpretation Comments THROMBOPLASTIN TIME PARTIAL (test code = PTT) 25.3 Seconds 25.0-39. 5 N Therapeutic Range: 50.4 - 88.3 Seconds Effective 06/30/2018 CBC W/AUTO [id number] 02:09:00* Test Item Value Reference Range Interpretation Comments WHITE BLOOD CELL (test code = WBC) 13.15 x10 3/uL 4.5-11.0 H RED BLOOD CELL (test code = RBC) 4.53 x10 6/uL 3.54-5.02 N HEMOGLOBIN (test code = HGB) 11.4 g/dL 11.0-15.0 N HEMATOCRIT (test code = HCT) 38.7 % 33.0-45.0 N MEAN CELL VOLUME (test code = MCV) 85.4 fL 81.0-99.0 N MEAN CELL HGB (test code = MCH) 25.2 pg 27.0-33.0 L MEAN CELL HGB CONCETRATION (test code = MCHC) 29.5 g/dL 33.0-37. 0 L RED CELL DISTRIBUTION WIDTH CV (test code = RDW) 14.6 % 11.5- 14.5 H RED CELL DISTRIBUTION WIDTH SD (test code = RDW-SD) 45.1 fL 37 .0-54.0 N PLATELET COUNT (test code = PLT) 276 x10 3/uL 150-400 N MEAN PLATELET VOLUME (test code = MPV) 11.1 fL 7.0-9.0 H NEUTROPHIL % (test code = NT%) 61.5 % 56.0-77.0 N IMMATURE GRANULOCYTE % (test code = IG%) 0.4 % 0.0-2.0 N LYMPHOCYTE % (test code = LY%) 29.6 % 14.0-32.0 N MONOCYTE % (test code = MO%) 5.0 % 4.8-9.0 N EOSINOPHIL % (test code = EO%) 3.3 % 0.3-3.7 N BASOPHIL % (test code = BA%) 0.2 % 0.0-2.0 N NUCLEATED RBC % (test code = NRBC%) 0.0 % 0-0 N NEUTROPHIL # (test code = NT#) 8.08 x10 3/uL 2.0-7.6 H IMMATURE GRANULOCYTE # (test code = IG#) 0.05 x10 3/uL 0.00-0.03 H LYMPHOCYTE # (test code = LY#) 3.89 x10 3/uL 1.0-3.8 H MONOCYTE # (test code = MO#) 0.66 x10 3/uL 0.1-0.8 N EOSINOPHIL # (test code = EO#) 0.44 x10 3/uL 0.0-0.2 H BASOPHIL # (test code = BA#) 0.03 x10 3/uL 0.0-0.2 N NUCLEATED RBC # (test code = NRBC#) 0.00 x10 3/uL 0.0-0.1 N MANUAL DIFF REQUIRED (test code = MDIFF) NO CBC W/AUTO [id number] 05:54:00* Test Item Value Reference Range Interpretation Comments WHITE BLOOD CELL (test code = WBC) K/mm3 4.5-12.5 RED BLOOD CELL (test code = RBC) mill/mm3 3.7-5.2 HEMOGLOBIN (test code = HGB) gram/dL 11.5-15.5 HEMATOCRIT (test code = HCT) % 36.0-46.0 MEAN CELL VOLUME (test code = MCV) fL 80-98 MEAN CELL HGB (test code = MCH) picogram 27.0-33.0 MEAN CELL HGB CONCETRATION (test code = MCHC) gram/dL 33.0-36. 0 RED CELL DISTRIBUTION WIDTH (test code = RDW) % 11.6-16. 2 RED CELL DISTRIBUTION WIDTH SD (test code = RDW-SD) fL 37 .0-51.0 PLATELET COUNT (test code = PLT) 277 K/mm3 150-450 N MEAN PLATELET VOLUME (test code = MPV) fL 6.7-11.0 NEUTROPHIL % (test code = NT%) % 39.0-69.0 IMMATURE GRANULOCYTE % (test code = IG%) % 0.0-5.0 LYMPHOCYTE % (test code = LY%) % 25.0-55.0 MONOCYTE % (test code = MO%) % 0.0-10.0 EOSINOPHIL % (test code = EO%) % 0.0-5.0 BASOPHIL % (test code = BA%) % 0.0-1.0 NEUTROPHIL # (test code = NT#) K/mm3 1.8-7.7 LYMPHOCYTE # (test code = LY#) K/mm3 1.0-5.0 MONOCYTE # (test code = MO#) K/mm3 0-0.8 EOSINOPHIL # (test code = EO#) K/mm3 0.0-0.5 BASOPHIL # (test code = BA#) K/mm3 0.0-0.2 SPECIMEN COMMENTS: day 1CBC W/AUTO [id number] 05:54:00* Test Item Value Reference Range Interpretation Comments WHITE BLOOD CELL (test code = WBC) 11.9 K/mm3 4.5-12.5 N RED BLOOD CELL (test code = RBC) 3.56 mill/mm3 3.7-5.2 L HEMOGLOBIN (test code = HGB) 9.4 gram/dL 11.5-15.5 L HEMATOCRIT (test code = HCT) 29.8 % 36.0-46.0 L MEAN CELL VOLUME (test code = MCV) 83.7 fL 80-98 N MEAN CELL HGB (test code = MCH) 26.4 picogram 27.0-33.0 L MEAN CELL HGB CONCETRATION (test code = MCHC) 31.5 gram/dL 33.0-36. 0 L RED CELL DISTRIBUTION WIDTH (test code = RDW) 14.5 % 11.6-16. 2 N RED CELL DISTRIBUTION WIDTH SD (test code = RDW-SD) 43.9 fL 37 .0-51.0 N PLATELET COUNT (test code = PLT) 277 K/mm3 150-450 N MEAN PLATELET VOLUME (test code = MPV) 11.6 fL 6.7-11.0 H NEUTROPHIL % (test code = NT%) 57.5 % 39.0-69.0 N IMMATURE GRANULOCYTE % (test code = IG%) 0.4 % 0.0-5.0 N LYMPHOCYTE % (test code = LY%) 32.7 % 25.0-55.0 N MONOCYTE % (test code = MO%) 5.0 % 0.0-10.0 N EOSINOPHIL % (test code = EO%) 4.1 % 0.0-5.0 N BASOPHIL % (test code = BA%) 0.3 % 0.0-1.0 N NUCLEATED RBC % (test code = NRBC%) 0.0 % 0-0 N NEUTROPHIL # (test code = NT#) 6.83 K/mm3 1.8-7.7 N IMMATURE GRANULOCYTE # (test code = IG#) 0.05 x10 3/uL 0-0.03 H LYMPHOCYTE # (test code = LY#) 3.90 K/mm3 1.0-5.0 N MONOCYTE # (test code = MO#) 0.60 K/mm3 0-0.8 N EOSINOPHIL # (test code = EO#) 0.49 K/mm3 0.0-0.5 N BASOPHIL # (test code = BA#) 0.04 K/mm3 0.0-0.2 N NUCLEATED RBC # (test code = NRBC#) 0.00 K/mm3 0.0-0.1 N MANUAL DIFF REQUIRED (test code = MDIFF) NO SPECIMEN COMMENTS: day [id number] 09:24:00* Test Item Value Reference Range Interpretation Comments GLUBED (test code = GLUBED) 107 mg/dL 74-106 H Performed by certified paving plant operator at [facility] [id number] 07:09:00* Test Item Value Reference Range Interpretation Comments GLUBED (test code = GLUBED) 90 mg/dL 74-106 N Performed by certified paving plant operator at [facility] [id number] 04:59:00* Test Item Value Reference Range Interpretation Comments GLUBED (test code = GLUBED) 82 mg/dL 74-106 N Performed by certified paving plant operator at [facility] AG HEPAT B [id number] 04:26:00* Test Item Value Reference Range Interpretation Comments AG HEPAT B SURF (test code = HBSAG) Nonreactive Index Nonreactive AB [id number] 04:26:00* Test Item Value Reference Range Interpretation Comments AB TREPONEMA (test code = TREPAB) Nonreactive Index NonReactive URINALYSIS [id number] 04:25:00* Test Item Value Reference Range Interpretation Comments UA COLOR (test code = COLU) YELLOW YELLOW UA APPEARANCE (test code = APPU) Cloudy CLEAR A UA GLUCOSE DIPSTICK (test code = DGLUU) NEGATIVE mg/dL NEGATIVE UA BILIRUBIN DIPSTICK (test code = BILU) NEGATIVE mg/dL NEGATIVE UA KETONE DIPSTICK (test code = KETU) 10 (1+) mg/dL NEGATIVE A UA SPECIFIC GRAVITY (test code = SGU) 1.024 1.001-1.035 UA BLOOD DIPSTICK (test code = LEROY) Negative mg/dL NEGATIVE UA PH DIPSTICK (test code = KELSI) 6.0 5.0-8.0 UA PROTEIN DIPSTICK (test code = PROU) 20 (Trace) mg/dL NEGATIVE A UA UROBILINIOGEN DIPSTICK (test code = URO) 2.0 (1+) mg/dL NEGATIVE A UA NITRITE DIPSTICK (test code = JAMESON) NEGATIVE NEGATIVE UA LEUKOCYTE ESTERASE W REFLEX (test code = LEUUR) 250 Kyung/u L (2+) Kyung/uL NEGATIVE A UA WBC (test code = WBCU) 0-5 per HPF 0-5 UA RBC (test code = RBCU) 0-2 #/HPF 0-5 UA EPITHELIAL CELLS (test code = EPIU) MANY per HPF FEW UA BACTERIA (test code = BACU) FEW #/HPF NONE A UA MUCUS (test code = MUCU) FEW #/LPF FEW HIV 1 2 COMBO AG/AB [id number] 04:12:00* Test Item Value Reference Range Interpretation Comments HIV 1 2 COMBO AG/AB SCREEN (test code = [id number]) AB/AG NO N REACTIVE NONREACTIVE NONREACTIVE HIV P24 ANTI GEN NONREACTIVE NONREACTIVE HIV 1&2 ANTIBODY NONREACTIVE THE HIV-1 P24 TEST HELPS DISTINGUISH ACUTE HIV-1INFECTIONFROM ESTABLISHED HIV-1 INFECTION WHEN THE SPECIMEN ISPOSITIVE FOR HIV-1 P24 ANTIGEN. HIV-1 P24 ANTIGEN IS HIGHEST IN THE FIRST FEW WEEKS AFTERINFECTION URINALYSIS [id number] 04:04:00* Test Item Value Reference Range Interpretation Comments UA COLOR (test code = COLU) YELLOW YELLOW UA APPEARANCE (test code = APPU) Cloudy CLEAR A UA GLUCOSE DIPSTICK (test code = DGLUU) NEGATIVE mg/dL NEGATIVE UA BILIRUBIN DIPSTICK (test code = BILU) NEGATIVE mg/dL NEGATIVE UA KETONE DIPSTICK (test code = KETU) 10 (1+) mg/dL NEGATIVE A UA SPECIFIC GRAVITY (test code = SGU) 1.024 1.001-1.035 UA BLOOD DIPSTICK (test code = LEROY) Negative mg/dL NEGATIVE UA PH DIPSTICK (test code = KELSI) 6.0 5.0-8.0 UA PROTEIN DIPSTICK (test code = PROU) 20 (Trace) mg/dL NEGATIVE A UA UROBILINIOGEN DIPSTICK (test code = URO) 2.0 (1+) mg/dL NEGATIVE A UA NITRITE DIPSTICK (test code = JAMESON) NEGATIVE NEGATIVE UA LEUKOCYTE ESTERASE W REFLEX (test code = LEUUR) 250 Kyung/u L (2+) Kyung/uL NEGATIVE A UA WBC (test code = WBCU) per HPF 0-5 UA RBC (test code = RBCU) per HPF 0-5 UA EPITHELIAL CELLS (test code = EPIU) per HPF Few UA BACTERIA (test code = BACU) per HPF NONE URINALYSIS [id number] 04:04:00* Test Item Value Reference Range Interpretation Comments UA COLOR (test code = COLU) YELLOW YELLOW UA APPEARANCE (test code = APPU) Cloudy CLEAR A UA GLUCOSE DIPSTICK (test code = DGLUU) NEGATIVE mg/dL NEGATIVE UA BILIRUBIN DIPSTICK (test code = BILU) NEGATIVE mg/dL NEGATIVE UA KETONE DIPSTICK (test code = KETU) 10 (1+) mg/dL NEGATIVE A UA SPECIFIC GRAVITY (test code = SGU) 1.024 1.001-1.035 UA BLOOD DIPSTICK (test code = LEROY) Negative mg/dL NEGATIVE UA PH DIPSTICK (test code = KELSI) 6.0 5.0-8.0 UA PROTEIN DIPSTICK (test code = PROU) 20 (Trace) mg/dL NEGATIVE A UA UROBILINIOGEN DIPSTICK (test code = URO) 2.0 (1+) mg/dL NEGATIVE A UA NITRITE DIPSTICK (test code = JAMESON) NEGATIVE NEGATIVE UA LEUKOCYTE ESTERASE W REFLEX (test code = LEUUR) 250 Kyung/u L (2+) Kyung/uL NEGATIVE A UA WBC (test code = WBCU) per HPF 0-5 UA RBC (test code = RBCU) per HPF 0-5 UA EPITHELIAL CELLS (test code = EPIU) per HPF Few UA BACTERIA (test code = BACU) per HPF NONE PROTHROMBIN [id number] 03:48:00* Test Item Value Reference Range Interpretation Comments PROTHROMBIN TIME PATIENT (test code = PTP) 11.0 seconds 9.0-14.0 N INTERNATIONAL NORMAL RATIO (test code = INR) 0.9 0.8-1.2 N The therapeutic range for oral anticoagulant therapy formost indications is an international normalized ratio (INR)of between 2.0 and 3.0. The recommended therapeutic INRrange for various clinical situations is listed below: Clinical Situation INR range Pulmonary e mbolism treatment (2.0-3.0)Venous thrombosis treatmentVenous thrombosis prophylaxis (high risk surgery)Prevention of systemic embolism from: Acute myocardial infarction Valvular heart disease Atrial fibrillation Mechanical prosthetic heart valves (2.5-3.5) IS PATIENT ON ANTICOAGULANTS? YLIST ANTICOAGULANTS LOVENOXSPECIMEN COMMENTS: stopped over 24 hours prior to admissionSPECIMEN COMMENTS: stopped over 24 hour prior to admissionTHROMBOPLASTIN TIME [id number] 03:48:00* Test Item Value Reference Range Interpretation Comments THROMBOPLASTIN TIME PARTIAL (test code = PTT) 21.1 seconds 23.0-37. 0 L IS PATIENT ON ANTICOAGULANTS? YLIST ANTICOAGULANTS LOVENOXSPECIMEN COMMENTS: stopped over 24 hours prior to admissionSPECIMEN COMMENTS: stopped over 24 hour prior to [id number] 03:48:00* Test Item Value Reference Range Interpretation Comments FIBRINOGEN (test code = FIB) 392 mg/dL 200-400 N IS PATIENT ON ANTICOAGULANTS? YLIST ANTICOAGULANTS LOVENOXSPECIMEN COMMENTS: stopped over 24 hours prior to admissionSPECIMEN COMMENTS: stopped over 24 hour prior to admissionCBC W/AUTO [id number] 03:43:00* Test Item Value Reference Range Interpretation Comments WHITE BLOOD CELL (test code = WBC) 12.6 K/mm3 4.5-12.5 H RED BLOOD CELL (test code = RBC) 3.84 mill/mm3 3.7-5.2 N HEMOGLOBIN (test code = HGB) 10.1 gram/dL 11.5-15.5 L HEMATOCRIT (test code = HCT) 32.2 % 36.0-46.0 L MEAN CELL VOLUME (test code = MCV) 83.9 fL 80-98 N MEAN CELL HGB (test code = MCH) 26.3 picogram 27.0-33.0 L MEAN CELL HGB CONCETRATION (test code = MCHC) 31.4 gram/dL 33.0-36. 0 L RED CELL DISTRIBUTION WIDTH (test code = RDW) 14.3 % 11.6-16. 2 N RED CELL DISTRIBUTION WIDTH SD (test code = RDW-SD) 43.2 fL 37 .0-51.0 N PLATELET COUNT (test code = PLT) 311 K/mm3 150-450 N MEAN PLATELET VOLUME (test code = MPV) 11.8 fL 6.7-11.0 H NEUTROPHIL % (test code = NT%) 65.1 % 39.0-69.0 N IMMATURE GRANULOCYTE % (test code = IG%) 0.4 % 0.0-5.0 N LYMPHOCYTE % (test code = LY%) 25.9 % 25.0-55.0 N MONOCYTE % (test code = MO%) 5.2 % 0.0-10.0 N EOSINOPHIL % (test code = EO%) 3.1 % 0.0-5.0 N BASOPHIL % (test code = BA%) 0.3 % 0.0-1.0 N NUCLEATED RBC % (test code = NRBC%) 0.0 % 0-0 N NEUTROPHIL # (test code = NT#) 8.22 K/mm3 1.8-7.7 H IMMATURE GRANULOCYTE # (test code = IG#) 0.05 x10 3/uL 0-0.03 H LYMPHOCYTE # (test code = LY#) 3.28 K/mm3 1.0-5.0 N MONOCYTE # (test code = MO#) 0.66 K/mm3 0-0.8 N EOSINOPHIL # (test code = EO#) 0.39 K/mm3 0.0-0.5 N BASOPHIL # (test code = BA#) 0.04 K/mm3 0.0-0.2 N NUCLEATED RBC # (test code = NRBC#) 0.00 K/mm3 0.0-0.1 N COMPREHENSIVE METABOLIC [id number] 03:43:00* Test Item Value Reference Range Interpretation Comments SODIUM (test code = NA) 139 mmol/L 136-145 N POTASSIUM (test code = K) 4.1 mmol/L 3.5-5.1 N CHLORIDE (test code = CL) 109.0 mmol/L 98-107 H CARBON DIOXIDE (test code = CO2) 22.0 mmol/L 21-32 N ANION GAP (test code = GAP) 12.1 10-20 N GLUCOSE (test code = GLU) 88 mg/dL 74-106 N BLOOD UREA NITROGEN (test code = BUN) 10 mg/dL 7-18 N GLOMERULAR FILTRATION RATE (test code = GFR) > 60 mL/min >=60 Estimated GFR by using Modified MDRD formula.Chronic kidney disease is defined as either kidney damageor GFR <60 mL/min/1.73 m2 for >3 months. CREATININE (test code = CREAT) 0.70 mg/dL 0.55-1.02 N Note change in reference range due to change in reagent. BUN/CREATININE RATIO (test code = BUN/CREA) 14.0 10-20 N TOTAL PROTEIN (test code = PROT) 6.4 gram/dL 6.4-8.2 N ALBUMIN (test code = ALB) 2.3 g/dL 3.4-5.0 L GLOBULIN (test code = GLOB) 4.1 gram/dL 2.7-4.2 N ALBUMIN/GLOBULIN RATIO (test code = A/G) 0.6 0.75-1.50 L CALCIUM (test code = CA) 8.7 mg/dL 8.5-10.1 N BILIRUBIN TOTAL (test code = BILT) 0.40 mg/dL 0.0-1.0 N SGOT/AST (test code = AST) 16 IUnit/L 15-37 N SGPT/ALT (test code = ALT) 11 IUnit/L 12-78 L ALKALINE PHOSPHATASE TOTAL (test code = ALKP) 144 IUnit/L 45-117 H Note change in reference range due to change in reagent. CBC W/AUTO [id number] 03:40:00* Test Item Value Reference Range Interpretation Comments WHITE BLOOD CELL (test code = WBC) K/mm3 4.5-12.5 RED BLOOD CELL (test code = RBC) mill/mm3 3.7-5.2 HEMOGLOBIN (test code = HGB) gram/dL 11.5-15.5 HEMATOCRIT (test code = HCT) % 36.0-46.0 MEAN CELL VOLUME (test code = MCV) fL 80-98 MEAN CELL HGB (test code = MCH) picogram 27.0-33.0 MEAN CELL HGB CONCETRATION (test code = MCHC) gram/dL 33.0-36. 0 RED CELL DISTRIBUTION WIDTH (test code = RDW) % 11.6-16. 2 RED CELL DISTRIBUTION WIDTH SD (test code = RDW-SD) fL 37 .0-51.0 PLATELET COUNT (test code = PLT) 311 K/mm3 150-450 N MEAN PLATELET VOLUME (test code = MPV) fL 6.7-11.0 NEUTROPHIL % (test code = NT%) % 39.0-69.0 IMMATURE GRANULOCYTE % (test code = IG%) % 0.0-5.0 LYMPHOCYTE % (test code = LY%) % 25.0-55.0 MONOCYTE % (test code = MO%) % 0.0-10.0 EOSINOPHIL % (test code = EO%) % 0.0-5.0 BASOPHIL % (test code = BA%) % 0.0-1.0 NEUTROPHIL # (test code = NT#) K/mm3 1.8-7.7 LYMPHOCYTE # (test code = LY#) K/mm3 1.0-5.0 MONOCYTE # (test code = MO#) K/mm3 0-0.8 EOSINOPHIL # (test code = EO#) K/mm3 0.0-0.5 BASOPHIL # (test code = BA#) K/mm3 0.0-0.2 COMPREHENSIVE METABOLIC [id number] 03:39:00* Test Item Value Reference Range Interpretation Comments SODIUM (test code = NA) 139 mmol/L 136-145 N POTASSIUM (test code = K) 4.1 mmol/L 3.5-5.1 N CHLORIDE (test code = CL) 109.0 mmol/L 98-107 H CARBON DIOXIDE (test code = CO2) mmol/L 21-32 ANION GAP (test code = GAP) 10-20 GLUCOSE (test code = GLU) mg/dL 74-106 BLOOD UREA NITROGEN (test code = BUN) mg/dL 7-18 GLOMERULAR FILTRATION RATE (test code = GFR) mL/min >=60 CREATININE (test code = CREAT) mg/dL 0.55-1.02 BUN/CREATININE RATIO (test code = BUN/CREA) 10-20 TOTAL PROTEIN (test code = PROT) gram/dL 6.4-8.2 ALBUMIN (test code = ALB) g/dL 3.4-5.0 GLOBULIN (test code = GLOB) gram/dL 2.7-4.2 ALBUMIN/GLOBULIN RATIO (test code = A/G) 0.75-1.50 CALCIUM (test code = CA) mg/dL 8.5-10.1 BILIRUBIN TOTAL (test code = BILT) mg/dL 0.0-1.0 SGOT/AST (test code = AST) IUnit/L 15-37 SGPT/ALT (test code = ALT) IUnit/L 12-78 ALKALINE PHOSPHATASE TOTAL (test code = ALKP) IUnit/L 45-117 Novel Coronavirus 2019 [id number] 05:12:00* Test Item Value Reference Range Interpretation Comments Novel Coronavirus 2019 Inhouse (test code = COVNONPUI) Negative Negative Novel Coronavirus 2019 [id number] 05:12:00* Test Item Value Reference Range Interpretation Comments Novel Coronavirus 2019 Inhouse (test code = COVNONPUI) Negative Negative - DUP AB/PEL/SC/[id number] 12:58:00 Name: MELECIO OSWALD [facility] Edwards : 1990 Age/S: 29 / F [address] [place] [address] Blvd Unit #: [id number] Loc: [place] [address] Phys: Gianluca Hernandez Acct: [id number] Dis Date: Status: REG ER PHONE #: [phone] Exam Date: 04/17/2019 1241 FAX #: [phone] Reason: see US PREG 1st TRIMTR EXAMS: CPT CODE: [id number] DUP AB/PEL/SC/LTD 27877 REASON FOR EXAM: vaginal bleeding, 9 weeks FIRST TRIMESTER ULTRASOUND COMPARISON: None Real- time transabdominal ultrasound examination of pelvis was performed with color and Doppler interrogation. LMP: 02/08/2019 GA by LMP: 9 weeks 5 days XUAN by LMP: 11/15/2019 The uterus measures 10.1 x 6.5 x 6.8 cm cm and contains an intrauterine gestation with a crown-rump length of 2.7 cm. Gestational age based on crown-rump length is9 weeks 1 day. This is within 2 standard deviation for menstrual age. No etiology is identified to explain the patient's bleeding. cardiac activity is noted with heart rate of 185 beats per minute. The right ovary measures 2.4 x 2.4 x 2.4 cm cm. The left ovary measures 3.2 x 1.7 x 2.0 cm cm. The ovaries appear normal. No extraovarian adnexal mass is noted. Blood flow is identified to both ovaries. There is no free fluid in the pelvis. IMPRESSION: Live intrauterine with gestational age of9 weeks 5 days based onLMP. EDC is11/15/2019. No etiology is identified to explain the patient's recent bleeding. Follow-up exam is recommended as clinically indicated or at 18-20 weeks for anatomic survey. at 1258 Reported and signed by: Nazanin Olivares M.D. CC: Boyd Hopkins M.D.; Gianluca CALLAHAN Technologist: Sigrid Chatman RDMS(AB)(OB) Trnscb Date/Time: 04/17/2019 (8288) [email or web address] Orig Print D/T: S: 04/17/2019 (4570) Probe: PAGE 1 Signed Report - US PREG 1ST TRIMTR 2019-04-17 12:58:00 Name: MELECIO OSWALD [facility] Edwards : 1990 Age/S: 29 / F [address] [place] [address] Unit #: [id number] Loc: [place] [address] Phys: Gianluca Hernandez Acct: [id number] Dis Date: Status: REG ER PHONE #: [phone] Exam Date: 04/17/2019 1241 FAX #: [phone] Reason: vaginal bleeding, 9 weeks pregnany EXAMS: CPT CODE: [id number] US PREG 1ST TRIMTR 38100 REASON FOR EXAM: vaginal bleeding, 9 weeks FIRST TRIMESTER ULTRASOUND COMPARISON: None Real-time transabdominal ultrasound examination of pelvis was performed with color and Doppler interrogation. LMP: 02/08/2019 GA by LMP: 9 weeks 5 days XUAN by LMP: 11/15/2019 The uterus measures 10.1 x 6.5 x 6.8 cm cm and contains an intrauterine gestation with a crown- rump length of 2.7 cm. Gestational age based on crown-rump length is9 weeks 1 day. This is within 2 standard deviation for menstrual age. No etiology is identified to explain the patient's bleeding. cardiac activity is noted with heart rate of 185 beats per minute. The right ovary measures 2.4 x 2.4 x 2.4 cm cm. The left ovary measures 3.2 x 1.7 x 2.0 cm cm. The ovaries appear normal. No extraovarian adnexal mass is noted. Blood flow is identified to both ovaries. There is no free fluid in the pelvis. IMPRESSION: Live intrauterine with gestational age of9 weeks 5 days based onLMP. EDC is11/15/2019. No etiology is identified to explain the patient's recent bleeding. Follow-up exam is recommended as clinically indicated or at 18-20 weeks for anatomic survey. at 1258 Reported and signed by: Nazanin Olivares M.D. CC: Boyd Hopkins M.D.; Gianluca CALLAHAN Technologist: Sigrid Chatman RDMS(AB)(OB) Trnscb Date/Time: 04/17/2019 (0755) [email or web address] Orig Print D/T: S: 04/17/2019 (5487) Probe: PAGE 1 Signed Report COMPREHENSIVE METABOLIC [id number] 12:26:00* Test Item Value Reference Range Interpretation Comments SODIUM (test code = NA) 138 mEq/L 134-147 N POTASSIUM (test code = K) 3.5 mEq/L 3.4-5.0 N CHLORIDE (test code = CL) 107 mEq/L 100-108 N CARBON DIOXIDE (test code = CO2) 24 mEq/L 21-33 N ANION GAP (test code = GAP) 11 0-20 N GLUCOSE (test code = GLU) 119 mg/dL 70-110 H BLOOD UREA NITROGEN (test code = BUN) 8 mg/dL 7-18 N GLOMERULAR FILTRATION RATE (test code = GFR) 118.2 110-120 N Units of measure = ml/min/1.73 m2 CREATININE (test code = CREAT) 0.6 mg/dL 0.6-1.3 N TOTAL PROTEIN (test code = PROT) 7.3 g/dL 6.4-8.2 N ALBUMIN (test code = ALB) 3.10 g/dL 3.4-5.0 L CALCIUM (test code = CA) 8.1 mg/dL 8.0-10.5 N BILIRUBIN TOTAL (test code = BILT) 0.5 MG/DL <1.5 N SGOT/AST (test code = AST) 14 IUnit/L 15-37 L SGPT/ALT (test code = ALT) 26 IUnit/L 15-65 N ALKALINE PHOSPHATASE TOTAL (test code = ALKP) 83 IUnit/L 20-125 N Is patient ? YHOW MANY WEEKS? 9 [id number] 12:26:00* Test Item Value Reference Range Interpretation Comments LIPASE (test code = LIP) 96 IUnit/L 73-393 N Is patient ? YHOW MANY WEEKS? 9 WEEKSHCG [id number] 12:26:00* Test Item Value Reference Range Interpretation Comments HCG SERUM (test code = HCG) 62907 0 - 6 NOT > 6 SUGGESTIVE OF EARLY RISES TWO FOLD EVERY 2 DAYS; SUGGEST RE CONFIRMING AFTER 2 DAYS. 150,000-200,[address] TRIMESTER 10,000 - 50,000 2ND & 3RD TRIMESTERResults in jonathan-International Units/mL Is patient ? YHOW MANY WEEKS? 9 WEEKSURINALYSIS [id number] 12:16:00* Test Item Value Reference Range Interpretation Comments UA COLOR (test code = COLU) YEL/STRAW UA APPEARANCE (test code = APPU) CLEAR UA GLUCOSE DIPSTICK (test code = DGLUU) NEGATIVE UA BILIRUBIN DIPSTICK (test code = BILU) NEGATIVE UA KETONE DIPSTICK (test code = KETU) NEGATIVE UA SPECIFIC GRAVITY (test code = SGU) 1.005-1.030 UA BLOOD DIPSTICK (test code = LEROY) NEGATIVE UA PH DIPSTICK (test code = KELSI) 5.0-7.0 UA PROTEIN DIPSTICK (test code = PROU) NEGATIVE UA UROBILINIOGEN DIPSTICK (test code = URO) mg/dL 0.2-1.0 UA NITRITE DIPSTICK (test code = JAMESON) NEGATIVE UA LEUKOCYTE ESTERASE DIPSTICK (test code = LEUU) NEGA TIVE UA RBC (test code = RBCU) 11-20 RBC/HPF 0-3 UA WBC NO REFLEX (test code = WBCUCL) 4-9 WBC/HPF 0-3 A UA BACTERIA (test code = BACU) NONE SEEN /HPF NONE SEEN UA SQUAMOUS CELLS (test code = SQU) 11-25 /HPF NONE SEEN A UA MUCUS (test code = MUCU) 4+ /LPF NONE SEEN A URINALYSIS [id number] 12:16:00* Test Item Value Reference Range Interpretation Comments UA COLOR (test code = COLU) YELLOW YEL/STRAW UA APPEARANCE (test code = APPU) SL CLOUDY CLEAR UA GLUCOSE DIPSTICK (test code = DGLUU) NEGATIVE NEGATIVE UA BILIRUBIN DIPSTICK (test code = BILU) NEGATIVE NEGATIVE UA KETONE DIPSTICK (test code = KETU) TRACE NEGATIVE A UA SPECIFIC GRAVITY (test code = SGU) 1.026 1.005-1.030 N UA BLOOD DIPSTICK (test code = LEROY) 2+ NEGATIVE A UA PH DIPSTICK (test code = KELSI) 5.0 5.0-7.0 N UA PROTEIN DIPSTICK (test code = PROU) NEGATIVE NEGATIVE UA UROBILINIOGEN DIPSTICK (test code = URO) 0.2 mg/dL 0.2-1.0 UA NITRITE DIPSTICK (test code = JAMESON) NEGATIVE NEGATIVE UA LEUKOCYTE ESTERASE DIPSTICK (test code = LEUU) TRACE NEGA TIVE A UA RBC (test code = RBCU) 11-20 RBC/HPF 0-3 UA WBC NO REFLEX (test code = WBCUCL) 4-9 WBC/HPF 0-3 A UA BACTERIA (test code = BACU) NONE SEEN /HPF NONE SEEN UA SQUAMOUS CELLS (test code = SQU) 11-25 /HPF NONE SEEN A UA MUCUS (test code = MUCU) 4+ /LPF NONE SEEN A PROTHROMBIN [id number] 12:01:00* Test Item Value Reference Range Interpretation Comments PROTHROMBIN TIME PATIENT (test code = PTP) 10.9 SECONDS 9.3-12.9 N INTERNATIONAL NORMAL RATIO (test code = INR) 1.0 0.8-1.2 N TARGET INR BY INDICATION Indication INR1. Prophylaxis of venous thrombosis 2.0 - 3.0 (orthopedic surgery), Prophylaxis of venous thrombosis (other than high-risk surgery), Treatment of Deep Vein Thrombosis/Pulmonary Embolism, Prevention of systemic embolism - Tissue heart valves, Acute Myocardial Infarction (to prevent systemic embolism), Valvular heart disease, Atrial Fibrillation, Bileaflet mechanical valve in aortic position.2. Mechanical prosthetic valves (high risk), 2.5 - 3.5 Presence of Lupus Anticoagulant or Antiphospholipid Antibodies, Prevention of systemic embolism - Acute Myocardial Infarction (to prevent recurrent infarct). THROMBOPLASTIN TIME [id number] 12:01:00* Test Item Value Reference Range Interpretation Comments THROMBOPLASTIN TIME PARTIAL (test code = PTT) 29.4 Seconds 25.0-39. 5 N Therapeutic Range: 50.4 - 88.3 Seconds Effective 06/30/2018 COMPREHENSIVE METABOLIC [id number] 11:53:00* Test Item Value Reference Range Interpretation Comments SODIUM (test code = NA) 138 mEq/L 134-147 N POTASSIUM (test code = K) 3.5 mEq/L 3.4-5.0 N CHLORIDE (test code = CL) 107 mEq/L 100-108 N CARBON DIOXIDE (test code = CO2) 24 mEq/L 21-33 N ANION GAP (test code = GAP) 11 0-20 N GLUCOSE (test code = GLU) 119 mg/dL 70-110 H BLOOD UREA NITROGEN (test code = BUN) 8 mg/dL 7-18 N GLOMERULAR FILTRATION RATE (test code = GFR) 110-120 CREATININE (test code = CREAT) mg/dL 0.6-1.3 TOTAL PROTEIN (test code = PROT) g/dL 6.4-8.2 ALBUMIN (test code = ALB) g/dL 3.4-5.0 CALCIUM (test code = CA) 8.1 mg/dL 8.0-10.5 N BILIRUBIN TOTAL (test code = BILT) MG/DL <1.5 SGOT/AST (test code = AST) IUnit/L 15-37 SGPT/ALT (test code = ALT) IUnit/L 15-65 ALKALINE PHOSPHATASE TOTAL (test code = ALKP) IUnit/L 20-125 Is patient ? YHOW MANY WEEKS? 9 [id number] 11:53:00* Test Item Value Reference Range Interpretation Comments LIPASE (test code = LIP) 96 IUnit/L 73-393 N Is patient ? YHOW MANY WEEKS? 9 WEEKSHCG [id number] 11:53:00* Test Item Value Reference Range Interpretation Comments HCG SERUM (test code = HCG) Is patient ? YHOW MANY WEEKS? 9 WEEKSCBC W/AUTO [id number] 11:50:00 * Test Item Value Reference Range Interpretation Comments WHITE BLOOD CELL (test code = WBC) 10.12 x10 3/uL 4.5-11.0 N RED BLOOD CELL (test code = RBC) 4.14 x10 6/uL 3.54-5.02 N HEMOGLOBIN (test code = HGB) 11.8 g/dL 11.0-15.0 N HEMATOCRIT (test code = HCT) 36.4 % 33.0-45.0 N MEAN CELL VOLUME (test code = MCV) 87.9 fL 81.0-99.0 N MEAN CELL HGB (test code = MCH) 28.5 pg 27.0-33.0 N MEAN CELL HGB CONCETRATION (test code = MCHC) 32.4 g/dL 33.0-37. 0 L RED CELL DISTRIBUTION WIDTH CV (test code = RDW) 13.1 % 11.5- 14.5 N RED CELL DISTRIBUTION WIDTH SD (test code = RDW-SD) 42.1 fL 37 .0-54.0 N PLATELET COUNT (test code = PLT) 281 x10 3/uL 150-400 N MEAN PLATELET VOLUME (test code = MPV) 10.2 fL 7.0-9.0 H NEUTROPHIL % (test code = NT%) 64.5 % 56.0-77.0 N IMMATURE GRANULOCYTE % (test code = IG%) 0.3 % 0.0-2.0 N LYMPHOCYTE % (test code = LY%) 24.3 % 14.0-32.0 N MONOCYTE % (test code = MO%) 5.6 % 4.8-9.0 N EOSINOPHIL % (test code = EO%) 5.0 % 0.3-3.7 H BASOPHIL % (test code = BA%) 0.3 % 0.0-2.0 N NUCLEATED RBC % (test code = NRBC%) 0.0 % 0-0 N NEUTROPHIL # (test code = NT#) 6.52 x10 3/uL 2.0-7.6 N IMMATURE GRANULOCYTE # (test code = IG#) 0.03 x10 3/uL 0.00-0.03 N LYMPHOCYTE # (test code = LY#) 2.46 x10 3/uL 1.0-3.8 N MONOCYTE # (test code = MO#) 0.57 x10 3/uL 0.1-0.8 N EOSINOPHIL # (test code = EO#) 0.51 x10 3/uL 0.0-0.2 H BASOPHIL # (test code = BA#) 0.03 x10 3/uL 0.0-0.2 N NUCLEATED RBC # (test code = NRBC#) 0.00 x10 3/uL 0.0-0.1 N MANUAL DIFF REQUIRED (test code = MDIFF) NO - CT ANGIO [id number] 12:15:00 Name: MELECIO OSWALD [facility] : 1990 Age/S: 28 / F [address] [place] [address] Blvd Unit #: [id number] Loc: [place] [address] Phys: Joe Mata MD Acct: [id number] Dis Date: Status: REG CLI PHONE #: [phone] Exam Date: 09/08/2018 1143 FAX #: [phone] Reason: 126.99, PE. EXAMS: CPT CODE: [id number] CT ANGIO CHEST 72586 CTA Chest: HISTORY: Reason right-sided pulmonary emboli 2 mm helical images are obtained from lung apices through upper abdomen after the dynamic administration of IV contrast ( 100 ml Isovue-300 ). Computer generated 2D coronal reconstructions of the pulmonary arteries are obtained and 3D maximum intensity projection images. CT imaging performed at this location utilizes radiation dose optimization techniques which include one or more of the following: - Automated exposure control -Adjustment of the mA and/or kV according to patient size -Use of iterative reconstruction technique CT Radiation Dose DLP 380 mGy-cm COMPARISON: 11/21/2017 FINDINGS: Thyroid lobes are prominent and there is suggestion of a 2 cm low-density nodule on the right. Midline trachea without displacement or narrowing. No pulmonary emboli seen in either lung. Right-sided pulmonary emboli have cleared. Thoracic aorta normal caliber without aneurysm. No mediastinal or hilar adenopathy. Limited images through the upper abdomen are unremarkable. Both lungs are clear. No infiltrate or pleural effusion. No lung nodule or mass. Review on bone window shows no acute bony abnormality. No vertebral compression. IMPRESSION: 1. Resolution of pulmonary emboli. No pulmonary emboli or other acute process currently. 2. Suggestion of a 2 cm right thyroid nodule. SL: [id number] Elect ronically Signed by Faustino Elias on 09/08/2018 at 1215 Reported and signed by: Jonah Elias M.D. PAGE 1 Signed Report (CONTINUED) Name: MELECIO OSWADL [facility] Edwards : 1990 Age/S: 28 / F [address] [place] [address] Unit #: [id number] Loc: [place], [place] [address] Phys: Joe Mata MD Acct: [id number] Dis Date: Status: R EG CLI PHONE #: [phone] Exam Date: 08/16 1143 FAX #: [phone] Reason: 126.99, PE. EXAMS: CPT CODE: [id number] CT ANGIO CHEST 7 2167 <Continued> CC: Joe Mata MD; Boyd Hopkins M.D. Technologist:RT Jay(R)(CT) CTDI: DLP: Trnscb Date/Time: 09/08/2018 (8058) Messi Orig Print D/T: S: 09/08/2018 (2975) PAGE 2 Signed Report
== END 2020-01-03 04:40 | disposition home or self-care (01) ==
LOC: FSED 04:20
DX: R20.0 Anesthesia of skin (principal); Z86.718 Personal history of other venous thrombosis and embolism
CPT/HCPCS: 99282